=== PATIENT | male | born 1975 | race Caucasian/White ===

== ENCOUNTER 2016-07-02 18:27 | Emergency (ER) | payer SELFPAY ==
[~2016-07-02] VITALS: Ht 182.9 cm; Wt 100.0 kg
[~2016-07-02 18:27] MED LIST: CLIN150 PO; IBUP800T23 PO
[2016-07-02 18:29] VITALS: BP 172/102; PULSE 86; RESP 20; TEMP 97.7; O2SAT 98
[2016-07-02] MEDS ORDERED: AMOX500T PO (20:24)
[2016-07-02] MEDS ORDERED: DICL50TA3 PO (20:24)
--- NOTE | 2016-07-02 20:27 | PD ---
HPI Chief Complaint: Oral / Dental Pain or Problem Time Seen by Provider: 20:24 Travel History International Travel<30 days: No Contact w/Intl Traveler<30days: No Traveled to known affect area: No History of Present Illness HPI 40-year-old white male presents to the emergency department with complaints of dental pain and facial swelling. He states that his symptoms and been present now for the last week. He states that he had a leftover prescription from a friend that he started taking. He states that he had taken several days of amoxicillin which seemed to improve his symptoms. He states he is out of his antibiotics now and still has pain in his teeth. He denies any fever chills. No ear pain or sore throat. Pain is mild to moderate. No alleviating or palliative activity. No exacerbating activity. PFSH Past Medical History Medical History: Denies Significant Hx Diminished Hearing: No Tetanus Vaccination: Unknown Past Surgical History Appendectomy: Yes Social History Alcohol Use: No Tobacco Use: Yes (1 ppd) Substance Use: Yes (marijuana) Allergies-Medications (Allergen,Severity, Reaction): Coded Allergies: No Known Allergies (Unverified , 07/02/16) Reported Meds & Prescriptions Reported Meds & Active Scripts Active Review of Systems Except as stated in HPI: all other systems reviewed are Neg General / Constitutional: No: Fever, Chills Eyes: No: Blurred Vision, Photophobia HENT: Positive: Dental Difficulties, No: Headaches, Lightheadedness, Ear Discharge, Earache Cardiovascular: No: Palpitations, Irregular Rhythm Respiratory: No: Cough, Shortness of Breath Gastrointestinal: No: Nausea, Vomiting Genitourinary: No: Urgency, Frequency Physical Exam Narrative GENERAL: Well-developed, well-nourished in no acute distress. Nontoxic appearing. HEAD: Normocephalic, atraumatic. EYES: Pupils equal round and reactive. Extraocular motions intact. No scleral icterus. No injection or drainage. ENT: TMs clear without erythema. The external auditory canals clear. Nose: clear . Posterior pharynx is pink and moist. No tonsillar edema or exudate. Uvula midline. Airway patent. Patient has multiple dental caries. There is no facial cellulitis. Poor dentition NECK: Trachea midline.Supple, nontender, moves head freely. No central bony tenderness or spasm. CARDIOVASCULAR: Regular rate and rhythm without murmurs, gallops, or rubs. RESPIRATORY: Clear to auscultation. Breath sounds equal bilaterally. No wheezes , rales, or rhonchi. GASTROINTESTINAL: Abdomen soft, non-tender, nondistended. No hepato-splenomegaly , or palpable masses. No guarding. EXTREMITIES: No clubbing, cyanosis, or edema. No joint tenderness, effusion, or edema noted. BACK: Nontender without deformity or crepitance. No flank tenderness. Data Data Last Documented VS Vital Signs Date Time Temp Pulse Resp B/P Pulse Ox O2 Delivery O2 Flow Rate FiO2 07/02/16 18:29 97.7 86 20 172/102 98 Room Air MDM Medical Decision Making Medical Screen Exam Complete: Yes Emergency Medical Condition: Yes Medical Record Reviewed: Yes Differential Diagnosis MDM: Moderate Differential diagnoses: Dental abscess, dental caries, osteitis, cellulitis Narrative Course Patient's given prescriptions for amoxicillin diclofenac. He is made aware of his blood pressure. Diagnosis Primary Impression: Dental caries Additional Impressions: Dentalgia Hypertension Qualified Code: I10 - Essential hypertension Patient Instructions: General Instructions Additional Instructions: Rest. [place]water gargles. [place] oil on cotton balls. 3 Advil every 6 hours. Amoxicillin and Ultram. follow-up with a dentist as soon as possible. Follow-up with a primary care doctor for blood pressure management. And return to the ER if any problems. Med/Other Pt SpecificInfo: Prescription(s) given Scripts Diclofenac Sodium DR 50 Mg Tabdr50 Mg PO TID #21 TAB Prov:Tristen Buckner MD 07/02/16 Amoxicillin 500 Mg Tab1,000 Mg PO BID #40 TAB Prov:Tristen Buckner MD 07/02/16 Disposition: 01 DISCHARGE HOME Condition: Stable Cedrick Herrera Jul 02, 2016 20:27
== END 2016-07-02 20:30 | disposition home or self-care (01) ==
LOC: NEPB 18:27
DX: K02.9 Dental caries, unspecified (principal); I10 Essential (primary) hypertension; F17.200 Nicotine dependence, unspecified, uncomplicated
CPT/HCPCS: 99282

== ENCOUNTER 2016-11-19 04:17 | Emergency (ER) | payer SELFPAY ==
[~2016-11-19] VITALS: Ht 182.9 cm; Wt 100.0 kg
[~2016-11-19 04:17] MED LIST changes: +AMOX500T PO; -CLIN150 PO; +DICL50TA3 PO; -IBUP800T23 PO
[2016-11-19 04:22] VITALS: BP 144/84; PULSE 97; RESP 18; TEMP 98.1; O2SAT 95
[2016-11-19] MEDS ORDERED: DIPHTH/TETANUS/ACEL PERTUSSIS (BOOSTER) 0.5 ML VIAL/PFS IM ONE (05:00)
[2016-11-19] MEDS ORDERED: SODIUM CHLOR 0.9% 1000 ML INJ 1,000 ML IV ONE (05:00)
[2016-11-19] MEDS ORDERED: ceFAZolin 2 GM PREMIX 50 ML IV ONE (05:00)
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
[2016-11-19 05:20] VITALS: BP 134/71; PULSE 78; RESP 16; O2SAT 90; O2SAT 92
[2016-11-19 05:22] LABS: AUTOMATED NEUTROPHIL # 6.9 TH/MM3 (1.8-7.7); BASOPHIL # 0.1 TH/MM3 (0-0.2); BASOPHIL % 0.5 % (0.0-2.0); EOSINOPHIL # 0.2 TH/MM3 (0-0.4); HEMATOCRIT 43.7 % (39.0-51.0); HEMO FLAGS DIFF FINAL; LYMPH % 25.4 % (9.0-44.0); LYMPHOCYTE # 2.8 TH/MM3 (1.0-4.8); MEAN CELL VOLUME 88.2 FL (80.0-100.0); MEAN CORPUSCULAR HEMOGLOBIN 30.6 PG (27.0-34.0); MEAN CORPUSCULAR HGB CONC 34.7 % (32.0-36.0); MONO % 9.5 % (0.0-8.0); NEUT % 62.6 % (16.0-70.0); PLATELET COUNT 258 TH/MM3 (150-450); RED BLOOD COUNT 4.96 MIL/MM3 (4.50-5.90); RED CELL DISTRIBUTION WIDTH 12.8 % (11.6-17.2)
[2016-11-19 05:30] LABS: APTT (PATIENT) 26.1 SEC (24.3-30.1); INTERNATIONAL NORMALIZED RATIO 0.9 RATIO; PROTHROMBIN TIME - PATIENT 9.9 SEC (9.8-11.6)
[2016-11-19 05:38] LABS: ALT (GPT) 218 U/L (12-78); ANION GAP 10 MEQ/L (5-15); AST (GOT) 179 U/L (15-37); BICARBONATE 28.9 MEQ/L (21.0-32.0); BLOOD UREA NITROGEN 12 MG/DL (7-18); CHLORIDE 102 MEQ/L (98-107); GLOMERULAR FILTRATION RATE 89 ML/MIN (>89); POTASSIUM 3.3 MEQ/L (3.5-5.1); SODIUM (NA) 141 MEQ/L (136-145)
[2016-11-19 05:43] LABS: ALKALINE PHOSPHATASE 98 U/L (45-117); TOTAL BILIRUBIN ADULT 0.6 MG/DL (0.2-1.0)
--- NOTE | 2016-11-19 05:59 | PD ---
HPI Chief Complaint: Laceration/Skin Injury Time Seen by Provider: 04:39 Travel History International Travel<30 days: No Contact w/Intl Traveler<30days: No Traveled to known affect area: No History of Present Illness HPI The patient is a 41 year old male who presents to the [facility] emergency department with a history of reportedly falling sometime earlier this evening. The patient is currently intoxicated with alcohol. The patient also reports recently using cocaine. The patient is unsure how he fell. The patient is unsure whether he had any loss of consciousness. The patient was brought in by ambulance services with a pressure bandage in place. The patient was noted to have a reportedly 1 inch laceration to the medial forehead. The patient on arrival is sleepy and has difficulty staying awake to answer questions, therefore the patient's history is limited. The patient reports that his tetanus was last updated in 2010. FORMERLY [facility], [facility] Past Medical History Narrative Medical The patient's past medical history is significant for polysubstance abuse Diminished Hearing: No Tetanus Vaccination: < 5 Years Influenza Vaccination: No Past Surgical History Narrative Surgical The patient's past surgical history is significant for an appendectomy. Appendectomy: Yes Social History Alcohol Use: Yes Tobacco Use: Yes (1 ppd) Substance Use: Yes (marijuana, coccaine) Allergies-Medications (Allergen,Severity, Reaction): Coded Allergies: No Known Allergies (Unverified , 11/19/16) Reported Meds & Prescriptions Reported Meds & Active Scripts Active No Active Prescriptions or Reported Medications Review of Systems Except as stated in HPI: all other systems reviewed are Neg General / Constitutional: No: Fever Eyes: No: Visual changes HENT: No: Headaches, Neck Stiffness, Neck Pain Cardiovascular: No: Chest Pain or Discomfort Respiratory: No: Shortness of Breath Gastrointestinal: No: Abdominal Pain Genitourinary: No: Dysuria Musculoskeletal: No: Pain Skin: Positive Other (laceration of the forehead), No Rash Neurologic: Positive: Change in Mentation, Slurred Speech, No: Weakness, Focal Abnormalities, Sensory Disturbance Psychiatric: Positive: Substance Abuse, No: Depression Endocrine: No: Polydipsia Hematologic/Lymphatic: No: Easy Bruising Physical Exam Narrative General: The patient is a well-developed well-nourished male, drowsy on examination, having difficulty staying awake to provide history. The patient is brought in by ambulance services, no C-spine immobilization or backboard was placed prior to arrival per Head and Neck exam: Head is normocephalic, with pressure bandage in place over the top of his head. This was removed and the patient was noted to have a superficial laceration that is approximately 2-1/2 cm to the left side of his forehead. Bleeding has been controlled. There is no step-off or crepitus overlying this area. No facial bone tenderness or increased facial bone mobility noted on palpation. Eyes: EOMI, pupils are equal round and reactive to light. Nose: Midline septum with pink mucous membranes Mouth: Dentition unremarkable. Moist mucus membranes. Posterior oropharynx is not erythematous. No tonsillar hypertrophy. Uvula midline. Airway patent. Neck: The patient has no spinous process tenderness to palpation. No step-off or crepitus. No erythema or ecchymosis. No tracheal deviation. The trachea appears midline. Cardiovascular: Regular rate and rhythm without murmurs, gallops, or rubs. Lungs: Clear to auscultation bilaterally. No wheezes, rhonchi, or rales. No chest wall tenderness to palpation. No erythema or ecchymosis noted. No crepitus , step off, or flail segment noted. Abdomen: Soft, without tenderness to palpation in all 4 quadrants of the abdomen. No guarding, rebound, or rigidity. No erythema or ecchymosis noted. Extremities: No instability or pain noted on pelvic rock. No clubbing, cyanosis , or edema. 2+ pulses in all 4 extremities. No extremity tenderness or deformity noted on palpation or passive/ active range of motion. Back: No spinous process tenderness to palpation. No stepoff or crepitus noted. No costovertebral angle tenderness to palpation. No erythema or ecchymosis. Neurologic Exam: The patient is uncooperative with formal neurologic testing, however when he is awakened he has no evidence of facial asymmetry and moves all extremities equally with 5 over 5 strength. Skin Exam: No rash noted. Data Data Last Documented VS Vital Signs Date Time Temp Pulse Resp B/P Pulse Ox O2 Delivery O2 Flow Rate FiO2 11/19/16 05:20 90 Room Air 11/19/16 05:20 78 16 134/71 2 11/19/16 04:[address] Brain W/O Iv Contrast(Rout) (11/19/16 04:39) Ct Cerv Spine W/O Contrast (11/19/16 04:39) Complete Blood Count With Diff (11/19/16 04:51) Comprehensive Metabolic Panel (11/19/16 04:51) Prothrombin Time / Inr (Pt) (11/19/16 04:51) Act Partial Throm Time (Ptt) (11/19/16 04:51) Urinalysis - C+S If Indicated (11/19/16 04:51) Chest, Single Ap (11/19/16 04:51) Iv Access Insert/Monitor (11/19/16 04:51) Ecg Monitoring (11/19/16 04:51) Oximetry (11/19/16 04:51) Drug Screen, Random Urine (11/19/16 04:51) Alcohol (Ethanol) (11/19/16 04:51) Sodium Chlor 0.9% 1000 Ml Inj (Ns 1000 M (11/19/16 05:00) Gbmv-Fzw-Kiyphk (Booster) Inj (Boostrix (11/19/16 05:00) Cefazolin 2 Gm Premix (Ancef 2 Gm Premix (11/19/16 05:00) Labs Laboratory Tests Test 11/19/16 05:15 White Blood Count 11.0 TH/MM3 Red Blood Count 4.96 MIL/MM3 Hemoglobin 15.2 GM/DL Hematocrit 43.7 % Mean Corpuscular Volume 88.2 FL Mean Corpuscular Hemoglobin 30.6 PG Mean Corpuscular Hemoglobin 34.7 % Concent Red Cell Distribution Width 12.8 % Platelet Count 258 TH/MM3 Mean Platelet Volume 8.0 FL Neutrophils (%) (Auto) 62.6 % Lymphocytes (%) (Auto) 25.4 % Monocytes (%) (Auto) 9.5 % Eosinophils (%) (Auto) 2.0 % Basophils (%) (Auto) 0.5 % Neutrophils # (Auto) 6.9 TH/MM3 Lymphocytes # (Auto) 2.8 TH/MM3 Monocytes # (Auto) 1.1 TH/MM3 Eosinophils # (Auto) 0.2 TH/MM3 Basophils # (Auto) 0.1 TH/MM3 CBC Comment DIFF FINAL Differential Comment Prothrombin Time 9.9 SEC Prothromb Time International 0.9 RATIO Ratio Activated Partial 26.1 SEC Thromboplast Time Sodium Level 141 MEQ/L Potassium Level 3.3 MEQ/L Chloride Level 102 MEQ/L Carbon Dioxide Level 28.9 MEQ/L Anion Gap 10 MEQ/L Blood Urea Nitrogen 12 MG/DL Creatinine 0.94 MG/DL Estimat Glomerular Filtration 89 ML/MIN Rate Random Glucose 133 MG/DL Calcium Level 8.1 MG/DL Total Bilirubin 0.6 MG/DL Aspartate Amino Transf 179 U/L (AST/SGOT) Alanine Aminotransferase 218 U/L (ALT/SGPT) Alkaline Phosphatase 98 U/L Total Protein 7.4 GM/DL Albumin 3.9 GM/DL Ethyl Alcohol Level 300 MG/DL [facility] Medical Decision Making Medical Screen Exam Complete: Yes Emergency Medical Condition: Yes Medical Record Reviewed: Yes Differential Diagnosis Intracranial hemorrhage, versus cervical spine injury, versus concussion, versus alcohol intoxication, versus other substance intoxication. Narrative Course During the course of the patients emergency department visit, the patients history, examination, and differential diagnosis were reviewed with the patient. The patient had IV access obtained and blood work sent for analysis. The patient was placed on a gas utility worker with oximetry and blood pressure monitoring. A CT scan of the head and neck was ordered, chest x-ray was ordered. Dermabond was placed at the bedside for the repair of the patient's wound by me. The patient's wound was cleaned prior to the Dermabond being applied. The patient was initially provided an update of his tetanus, Ancef 2 g IV. The patient was given normal saline 1 L IV fluid bolus. The patients laboratory studies were reviewed and remarkable for a white count of 11, hemoglobin 15.2, platelets 258 with 9.5 monocytes, CMP is remarkable for potassium of 3.3 which will be supplemented, glucose 133, calcium 8.1, AST 179, ALT 218, PT PTT within normal limits, alcohol level is 300. Radiology studies were reviewed and remarkable for a chest x-ray that shows no acute abnormality. CT scan of the brain shows no acute abnormality. CT scan of the C-spine shows no evidence of an acute fracture, chronic degenerative disease at C5-C6 is noted. The patient will be observed in the emergency department fully has improvement in his mentation and is able to walk without assistance. Procedures Procedure Narrative Laceration repair: The patient has a superficial laceration that is approximately 2-1/2 cm along the left side of the forehead. Bleeding is controlled. The patient's wound was cleaned and Dermabond was applied by me. The patient tolerated the procedure well. Diagnosis Primary Impression: Head injury Qualified Code: S09.90XA - Head injury, initial encounter Additional Impression: Alcohol intoxication Qualified Code: F10.929 - Alcohol intoxication, with unspecified complication Scripts No Active Prescriptions or Reported Meds Matilda Ferguson MD Nov 19, 2016 05:59
[2016-11-19 09:20] VITALS: BP 130/58; PULSE 74; RESP 16; O2SAT 94
== END 2016-11-19 13:21 | disposition home or self-care (01) ==
LOC: NEPE 04:17
DX: S01.81XA Laceration without foreign body of other part of head, initial encounter (principal); S09.90XA Unspecified injury of head, initial encounter; F10.129 Alcohol abuse with intoxication, unspecified; F17.200 Nicotine dependence, unspecified, uncomplicated; Z23 Encounter for immunization; W19.XXXA Unspecified fall, initial encounter
CPT/HCPCS: 12011; 70450; 71010; 72125; 80053; 80307; 85025; 85610; 85730; 90471; 90715; 96365; 99285; J0690; J7030

== ENCOUNTER 2016-12-02 17:23 | Inpatient (IN) | payer OTHER ==
[~2016-12-02] VITALS: Ht 182.9 cm; Wt 97.0 kg
[2016-12-02 17:24] VITALS: BP 125/52; PULSE 84; RESP 22; TEMP 97.7
[2016-12-02] MEDS ORDERED: SODIUM CHLORIDE 0.9% FLUSH 10 ML FLUSH IVF PRN (17:45)
[2016-12-02] MEDS ORDERED: MORPHINE SULFATE 4 MG/ML INJ IV PUSH ONE ×2 (17:45→19:00)
[2016-12-02] MEDS ORDERED: ONDANSETRON HCL 4 MG/2 ML VIAL IVP ONE (17:45)
[2016-12-02] MEDS ORDERED: SODIUM CHLOR 0.9% 1000 ML INJ 1,000 ML IV ONE (17:45)
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
[2016-12-02] MEDS ORDERED: TETANUS/DIPHTHERIA TOXOID ADULT 0.5 ML VIAL IM ONE (18:00)
[2016-12-02 18:01] LABS: BASOPHIL # 0.1 TH/MM3 (0-0.2); BASOPHIL % 0.5 % (0.0-2.0); EOSINOPHIL # 0.2 TH/MM3 (0-0.4); EOSINOPHIL % 1.5 % (0.0-4.0); HEMATOCRIT 45.8 % (39.0-51.0); HEMO FLAGS DIFF FINAL; LYMPH % 14.8 % (9.0-44.0); LYMPHOCYTE # 2.4 TH/MM3 (1.0-4.8); MEAN CELL VOLUME 89.6 FL (80.0-100.0); MEAN CORPUSCULAR HEMOGLOBIN 31.3 PG (27.0-34.0); MEAN CORPUSCULAR HGB CONC 34.9 % (32.0-36.0); MONO % 8.8 % (0.0-8.0); NEUT % 74.4 % (16.0-70.0); PLATELET COUNT 265 TH/MM3 (150-450); RED BLOOD COUNT 5.12 MIL/MM3 (4.50-5.90); RED CELL DISTRIBUTION WIDTH 13.1 % (11.6-17.2); WHITE BLOOD COUNT 16.2 TH/MM3 (4.0-11.0)
[2016-12-02 18:15] LABS: APTT (PATIENT) 23.4 SEC (24.3-30.1); PROTHROMBIN TIME - PATIENT 11.1 SEC (9.8-11.6)
[2016-12-02] MEDS ORDERED: IOHEXOL 350 MG/ML 10 ML VIAL (for RAD DIAG) IV ONE (18:20)
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
[2016-12-02 18:25] LABS: ANION GAP 14 MEQ/L (5-15); BICARBONATE 23.2 MEQ/L (21.0-32.0); BLOOD UREA NITROGEN 23 MG/DL (7-18); CHLORIDE 101 MEQ/L (98-107); GLOMERULAR FILTRATION RATE 71 ML/MIN (>89); POTASSIUM 3.8 MEQ/L (3.5-5.1); SODIUM (NA) 138 MEQ/L (136-145)
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
[2016-12-02 18:48] VITALS: BP 127/78; PULSE 70; RESP 16; O2SAT 98
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
[2016-12-02] MEDS ORDERED: ONDANSETRON HCL 4 MG/2 ML VIAL IV ONE (19:00)
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
[2016-12-02] MEDS ORDERED: PROPOFOL 500 MG/50 ML BTL IV ONE (20:30)
[2016-12-02 20:43] VITALS: BP 135/83; PULSE 85; RESP 16; O2SAT 96
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
[2016-12-02 20:55] VITALS: O2SAT 100
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
--- NOTE | 2016-12-02 21:32 | EKG ---
Date Performed: 12/02/2016 Time Performed: 17:46:39 PTAGE: 41 years EKG: Sinus rhythm NORMAL ECG NO PREVIOUS TRACING DOCTOR: Eugene Hidalgo Interpretating Date/Time 12/02/2016 21:30:02
[2016-12-02 22:22] VITALS: BP 141/86; PULSE 80; RESP 18; O2SAT 100
[2016-12-02] MEDS ORDERED: POVIDONE IODINE 5% (ANTISEPSIS KIT) 4 APPLICATIONS EACH NARE PRN (22:30)
[2016-12-02] MEDS ORDERED: METOPROLOL TARTRATE 25 MG TAB PO PRN (22:30)
[2016-12-02] MEDS ORDERED: SODIUM CHLORID 0.9% 500 ML IV PRN (22:30)
[2016-12-02] MEDS ORDERED: LACTATED RINGER'S 1000 ML IV PRN (22:30)
[2016-12-02] MEDS ORDERED: INSULIN HUMAN REGULAR 1,000 UNITS/10 ML VIAL SQ PRN (22:30)
[2016-12-02] MEDS ORDERED: CHLORHEXIDINE GLUCONATE 2 % 1 PACK (2 CLOTHS) TOPICAL PRN (22:30)
[2016-12-02 22:58] VITALS: BP 152/94; PULSE 84; RESP 18; TEMP 97.7; O2SAT 100
[2016-12-02] MEDS ORDERED: ONDANSETRON HCL 4 MG/2 ML VIAL IV PUSH PRN (23:15)
[2016-12-02] MEDS: MORPHINE SULFATE 4 MG/ML INJ IV PRN (23:25)
[2016-12-03] MEDS: ACETAMINOPHEN/HYDROcodone 325 MG/10 MG TAB PO PRN ×5 (00:11→17:46)
[2016-12-03] MEDS: MORPHINE SULFATE 4 MG/ML INJ IV PRN ×6 (02:23→23:50)
[2016-12-03 04:35] VITALS: BP 121/72; PULSE 78; RESP 17; TEMP 96.7; O2SAT 100
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
[2016-12-03] MEDS ORDERED: WHEEMIS3 (07:09)
[2016-12-03] MEDS ORDERED: HYDR-3583 PO (07:09)
[2016-12-03] MEDS ORDERED: WALKER/ADULT/FO1 MIS (07:09)
[2016-12-03] MEDS ORDERED: XARE10TA PO (07:09)
[2016-12-03] MEDS ORDERED: ENOXAPARIN SODIUM 30 MG/0.3 ML SYRINGE SQ ONE (07:15)
[2016-12-03] MEDS ORDERED: SODIUM CHLORIDE 0.9% FLUSH 10 ML FLUSH IV FLUSH PRN (07:45)
[2016-12-03] MEDS ORDERED: ONDANSETRON HCL 4 MG/2 ML VIAL IV PRN (07:45)
[2016-12-03 08:00] VITALS: BP 107/75; PULSE 86; RESP 17; TEMP 96.4; O2SAT 99
[2016-12-03] MEDS ORDERED: ENALAPRILAT 1.25 MG/ML VIAL IV PRN (08:00)
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
[2016-12-03] MEDS: DOCUSATE SODIUM 100 MG CAP PO SCH ×2 (08:48→20:09)
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
[2016-12-03 10:55] VITALS: BP 127/79; PULSE 85; RESP 18; TEMP 95.3; O2SAT 96
[2016-12-03] MEDS: GABAPENTIN 300 MG CAP PO SCH ×2 (13:17→15:49)
[2016-12-03] MEDS ORDERED: MAGN400S PO (13:51)
[2016-12-03] MEDS ORDERED: DOCU1CAP39 PO (13:51)
[2016-12-03 15:46] VITALS: BP 124/73; PULSE 89; RESP 18; TEMP 97.1; O2SAT 98
[2016-12-03 17:16] VITALS: O2SAT 98
[2016-12-03] MEDS: FAMOTIDINE 20 MG TAB PO SCH (20:09)
[2016-12-03] MEDS: MAGNESIUM HYDROXIDE SUSP 30 ML CUP PO SCH (20:15)
[2016-12-03 20:50] VITALS: BP 124/81; PULSE 86; RESP 17; TEMP 98.1; O2SAT 95
[2016-12-04] VITALS: BP 132/79; PULSE 82; RESP 16; TEMP 98.5; O2SAT 97
[2016-12-04] MEDS: MORPHINE SULFATE 4 MG/ML INJ IV PRN ×2 (03:57→07:00)
[2016-12-04 04:00] VITALS: BP 137/69; PULSE 85; RESP 20; TEMP 98.1; O2SAT 95
--- NOTE | 2016-12-04 06:56 | PD.ORT.PN ---
Subjective Subjective Remarks Resting comfortably with no new complaints Objective Vitals Vital Signs Date Time Temp Pulse Resp B/P Pulse Ox O2 Delivery O2 Flow Rate FiO2 12/04/16 04:00 98.1 85 20 137/69 95 12/04/16 00:00 98.5 82 16 132/79 97 12/03/16 20:50 98.1 86 17 124/81 95 12/03/16 17:16 98 Nasal Cannula 1.00 12/03/16 15:46 97.1 89 18 124/73 98 12/03/16 10:55 95.3 85 18 127/79 96 12/03/16 08:00 96.4 86 17 107/75 99 I/O 12/03/16 12/03/16 12/03/16 12/04/16 12/04/16 12/04/16 07:00 15:00 23:00 07:00 15:00 23:00 Intake Total 1690 ml 480 ml 61 ml Output Total 1000 ml 500 ml 975 ml Balance 690 ml -20 ml -914 ml Intake Oral 1690 ml 480 ml 0 ml IV Total 61 ml Output Urine Total 1000 ml 500 ml 975 ml Stool Total 0 ml # Bowel Movements 0 0 Result Diagram: 12/02/16 1745 12/02/16 1745 Imaging Last 24 hours Impressions Pelvis X-Ray 12/02/161736 Signed Impressions: Service Date/Time: Friday, December 02, 2016 17:53 - CONCLUSION: 1. Fracture of the right acetabulum with fracture fragments noted. 2. Femoral head is dislocated superiorly. Gordo Khalil MD Maxillofacial CT 12/02/161736 Signed Impressions: Service Date/Time: Friday, December 02, 2016 18:11 - CONCLUSION: 1. Facial soft tissue swelling without acute fracture. 2. Old left nasal fracture. Gordo Khalil MD Head CT 12/02/161736 Signed Impressions: Service Date/Time: Friday, December 02, 2016 18:11 - CONCLUSION: 1. No acute intracranial abnormality. Gordo Khalil MD Chest X-Ray 12/02/161736 Signed Impressions: Service Date/Time: Friday, December 02, 2016 17:55 - CONCLUSION: No acute disease. Gordo Khalil MD Abdomen/Pelvis CT 12/02/161736 Signed Impressions: Service Date/Time: Friday, December 02, 2016 18:20 - CONCLUSION: 1. Comminuted displaced fracture of the posterior acetabulum. 2. Dislocation of the femoral head superiorly and posteriorly. 3. No abdominal visceral injury. Gordo Khalil MD Objective Remarks RLE: +CKS. decreased sensation distally. +foot drop. Good distal pulses. Is able to move toes LLE: full motion. no pain. nvi BUE: full motion. no pain. nvi Assessment & Plan Assessment and Plan 1) Right Acetabulum fx/dislocation -bedrest -NWB -maintain knee brace -npo -consents -plan for surgery today 2) Right Foot Drop -monitor. -will require PODUS boot Cirilo Harp Jr. Dec 04, 2016 06:56
[2016-12-04] MEDS ORDERED: TRANEXAMIC ACID IV ONE (07:00)
[2016-12-04] MEDS ORDERED: SODIUM CHLORIDE 0.9% IV ONE (07:00)
[2016-12-04] MEDS: GABAPENTIN 300 MG CAP PO SCH ×4 (07:06→17:20)
[2016-12-04] MEDS: DOCUSATE SODIUM 100 MG CAP PO SCH ×2 (07:06→20:40)
[2016-12-04 07:15] LABS: BASOPHIL % 0.5 % (0.0-2.0); EOSINOPHIL # 0.3 TH/MM3 (0-0.4); EOSINOPHIL % 2.9 % (0.0-4.0); HEMATOCRIT 37.3 % (39.0-51.0); HEMO FLAGS DIFF FINAL; LYMPH % 16.3 % (9.0-44.0); LYMPHOCYTE # 1.4 TH/MM3 (1.0-4.8); MEAN CELL VOLUME 89.3 FL (80.0-100.0); MEAN CORPUSCULAR HEMOGLOBIN 32.1 PG (27.0-34.0); MEAN CORPUSCULAR HGB CONC 35.9 % (32.0-36.0); MONO % 13.2 % (0.0-8.0); NEUT % 67.1 % (16.0-70.0); PLATELET COUNT 200 TH/MM3 (150-450); RED BLOOD COUNT 4.18 MIL/MM3 (4.50-5.90); WHITE BLOOD COUNT 8.9 TH/MM3 (4.0-11.0)
[2016-12-04 07:49] LABS: BICARBONATE 30.7 MEQ/L (21.0-32.0); POTASSIUM 3.4 MEQ/L (3.5-5.1)
[2016-12-04] MEDS ORDERED: ceFAZolin 2 GM PREMIX 50 ML ONE (07:57)
[2016-12-04] MEDS ORDERED: VANCOMYCIN HCL 1000 MG VIAL ONE (07:57)
[2016-12-04] MEDS ORDERED: SODIUM CHLOR 0.9% 250 ML INJ 250 ML ONE (07:58)
[2016-12-04] MEDS ORDERED: GENTAMICIN SULFATE 80 MG/2 ML VIAL ONE (07:58)
[2016-12-04] MEDS ORDERED: FAMOTIDINE 20 MG/2 ML VIAL ONE (08:45)
[2016-12-04] MEDS ORDERED: MIDAZOLAM HCL 2 MG/2 ML VIAL ONE ×2 (08:45→12:29)
[2016-12-04] MEDS ORDERED: ACETAMINOPHEN 1000 MG/100 ML VIAL IV ONE (08:55)
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
[2016-12-04] MEDS ORDERED: MISCELLANEOUS NURSING INFORMATION XX PRN (11:45)
[2016-12-04] MEDS ORDERED: NALOXONE HCL 0.4 MG/ML AMP IV PRN (11:45)
[2016-12-04] MEDS ORDERED: ACETAMINOPHEN/HYDROcodone 325 MG/10 MG TAB PO PRN (11:45)
[2016-12-04] MEDS: LACTATED RINGER'S 1000 ML INJ 1,000 ML IV SCH ×2 (11:45→12:45)
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
[2016-12-04] MEDS: POTASSIUM CHLORIDE 20 MEQ CONTROLLED RELEASE TAB PO ONE ×2 (12:00→13:38)
[2016-12-04] MEDS ORDERED: fentaNYL CITRATE 250 MCG/5 ML AMP ONE (12:30)
[2016-12-04] MEDS ORDERED: DO NOT ADM ANY ANTICOAGULANT DRUGS PRN (12:45)
[2016-12-04] MEDS ORDERED: MISCELLANEOUS PHARMACY INFORMATION XX ONE (13:00)
[2016-12-04] MEDS: ACETAMINOPHEN/HYDROcodone 325 MG/10 MG TAB PO PRN ×2 (13:38→17:20)
[2016-12-04 13:42] VITALS: BP 152/86; PULSE 78; RESP 18; TEMP 98.9; O2SAT 94
[2016-12-04] MEDS: PCA - TOTAL MG MORPHINE DELIVERED PER SHIFT SCH ×2 (13:44→22:00)
--- NOTE | 2016-12-04 14:32 | RADRPT ---
EXAM DATE/TIME: 12/04/2016 11:31 [place] COMPARISON: No previous studies available for comparison. INDICATIONS : ORIF right acetabulum. MEDICAL HISTORY : None. SURGICAL HISTORY : None. ENCOUNTER: Subsequent ACUITY: 3 days PAIN SCORE: Non-responsive. LOCATION: Right acetabulum. FINDINGS: The patient is status post ORIF of right acetabular fracture. Hardware appears to be in good position . CONCLUSION: Status post ORIF of right acetabular fracture with hardware in good position. Tristen Ho MD on December 04, 2016 at 14:29 Board Certified Radiologist. This report was verified electronically.
[2016-12-04] MEDS: MORPHINE SULFATE 30 MG/30 ML PCA IV SCH ×2 (14:53→19:18)
[2016-12-04 16:00] VITALS: BP 142/84; PULSE 77; RESP 18; TEMP 98.2; O2SAT 93
[2016-12-04] MEDS: ceFAZolin 2 GM PREMIX 50 ML IV SCH (16:13)
[2016-12-04] MEDS: FAMOTIDINE 20 MG TAB PO SCH (20:40)
[2016-12-04] MEDS: MAGNESIUM HYDROXIDE SUSP 30 ML CUP PO SCH (20:40)
[2016-12-04] MEDS: VANCOMYCIN INJ 1,000 MG in SODIUM CHLOR 0.9% 250 ML INJ 250 ML IV SCH (20:43)
[2016-12-04 21:00] VITALS: BP 119/73; PULSE 87; RESP 17; TEMP 99; O2SAT 93
[2016-12-04 23:30] VITALS: BP 122/82; PULSE 93; RESP 17; TEMP 99.4; O2SAT 93
[2016-12-05] MEDS: ceFAZolin 2 GM PREMIX 50 ML IV SCH ×3 (00:23→19:08)
[2016-12-05] MEDS: ENOXAPARIN SODIUM 30 MG/0.3 ML SYRINGE SQ SCH ×2 (00:25→12:05)
[2016-12-05 03:55] VITALS: BP 133/69; PULSE 93; RESP 17; TEMP 99.8; O2SAT 92
[2016-12-05] MEDS: MORPHINE SULFATE 30 MG/30 ML PCA IV SCH ×2 (05:52→12:31)
[2016-12-05] MEDS: PCA - TOTAL MG MORPHINE DELIVERED PER SHIFT SCH ×3 (06:00→22:00)
--- NOTE | 2016-12-05 06:52 | PD.ORT.PN ---
Subjective Subjective Remarks Resting comfortably with no new complaints Objective Vitals Vital Signs Date Time Temp Pulse Resp B/P Pulse Ox O2 Delivery O2 Flow Rate FiO2 12/05/16 03:55 99.8 93 17 133/69 92 12/04/16 23:30 99.4 93 17 122/82 93 12/04/16 21:00 99.0 87 17 119/73 93 12/04/16 16:00 98.2 77 18 142/84 93 12/04/16 14:53 14 12/04/16 13:42 98.9 78 18 152/86 94 12/04/16 13:25 72 16 167/89 96 Nasal Cannula 2 12/04/16 13:00 81 16 160/85 95 Nasal Cannula 2 12/04/16 12:45 78 16 161/90 93 Nasal Cannula 2 12/04/16 12:25 98.2 92 16 174/87 95 Nasal Cannula 2 I/O 12/04/16 12/04/16 12/04/16 12/05/16 12/05/16 12/05/16 07:00 15:00 23:00 07:00 15:00 23:00 Intake Total 61 ml 2000 ml 1144 ml 1036 ml Output Total 975 ml 850 ml 215 ml 10 ml Balance -914 ml 1150 ml 929 ml 1026 ml Intake Oral 0 ml 360 ml IV Total 61 ml 200 ml 784 ml 1036 ml Other 1800 ml Output Urine Total 975 ml 550 ml 200 ml Drainage Total 50 ml 15 ml 10 ml Estimated Blood Loss 250 ml # Bowel Movements 0 Result Diagram: 12/04/16 0611 12/04/16 0611 Imaging Last 24 hours Impressions Pelvis X-Ray 12/02/161736 Signed Impressions: Service Date/Time: Friday, December 02, 2016 17:53 - CONCLUSION: 1. Fracture of the right acetabulum with fracture fragments noted. 2. Femoral head is dislocated superiorly. Gordo Khalil MD Maxillofacial CT 12/02/161736 Signed Impressions: Service Date/Time: Friday, December 02, 2016 18:11 - CONCLUSION: 1. Facial soft tissue swelling without acute fracture. 2. Old left nasal fracture. Gordo Khalil MD Head CT 12/02/161736 Signed Impressions: Service Date/Time: Friday, December 02, 2016 18:11 - CONCLUSION: 1. No acute intracranial abnormality. Gordo Khalil MD Chest X-Ray 12/02/161736 Signed Impressions: Service Date/Time: Friday, December 02, 2016 17:55 - CONCLUSION: No acute disease. Gordo Khalil MD Abdomen/Pelvis CT 12/02/161736 Signed Impressions: Service Date/Time: Friday, December 02, 2016 18:20 - CONCLUSION: 1. Comminuted displaced fracture of the posterior acetabulum. 2. Dislocation of the femoral head superiorly and posteriorly. 3. No abdominal visceral injury. Gordo Khalil MD Objective Remarks RLE: Dry dressings intact +CKS. decreased sensation distally. +foot drop. Good distal pulses. Is able to move toes LLE: full motion. no pain. nvi BUE: full motion. no pain. nvi Assessment & Plan Assessment and Plan 1) Right Acetabulum fx/dislocation ORIF POD 1 Toe-touch weightbearing with posterior hip precautions Radiation treatment today Daily dressing changes beginning POD 2 with removal of drain 2) Right Foot Drop -monitor. -will require PODUS boot Lovenox Incentive spirometry Case management for discharge planning to home with home health care on Saturday Follow-up with Dr. Arriaga or PA in 2 weeks Cirilo Harp Jr. Dec 05, 2016 06:52
[2016-12-05 07:00] LABS: HEMATOCRIT 30.7 % (39.0-51.0); MEAN CELL VOLUME 88.8 FL (80.0-100.0); MEAN CORPUSCULAR HEMOGLOBIN 31.8 PG (27.0-34.0); MEAN CORPUSCULAR HGB CONC 35.8 % (32.0-36.0); PLATELET COUNT 163 TH/MM3 (150-450); RED BLOOD COUNT 3.46 MIL/MM3 (4.50-5.90); RED CELL DISTRIBUTION WIDTH 12.9 % (11.6-17.2); REVIEW FLAG FINAL; WHITE BLOOD COUNT 8.7 TH/MM3 (4.0-11.0)
[2016-12-05 08:00] VITALS: BP 141/73; PULSE 86; RESP 18; TEMP 99.6; O2SAT 97
[2016-12-05] MEDS: VANCOMYCIN INJ 1,000 MG in SODIUM CHLOR 0.9% 250 ML INJ 250 ML IV SCH ×2 (08:39→20:54)
[2016-12-05] MEDS: INDOMETHACIN 75 MG CONTROLLED RELEASE CAP PO SCH (08:40)
[2016-12-05] MEDS: GABAPENTIN 300 MG CAP PO SCH ×2 (08:40→12:07)
[2016-12-05] MEDS: DOCUSATE SODIUM 100 MG CAP PO SCH ×2 (08:40→20:54)
[2016-12-05] MEDS: LACTATED RINGER'S 1000 ML INJ 1,000 ML IV SCH (09:47)
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
[2016-12-05 12:00] VITALS: BP 141/76; PULSE 87; RESP 19; TEMP 97.4; O2SAT 94
[2016-12-05] MEDS ORDERED: BISACODYL EC 5 MG TABEC PO ONE (12:45)
[2016-12-05] MEDS ORDERED: BISACODYL 10 MG SUPP RECTAL ONE (12:45)
[2016-12-05] MEDS: GABAPENTIN 400 MG CAP PO SCH ×2 (12:57→19:07)
[2016-12-05 16:00] VITALS: BP 130/70; PULSE 92; RESP 18; TEMP 99.7; O2SAT 93
[2016-12-05 20:05] VITALS: BP 148/81; PULSE 88; RESP 19; TEMP 100.2; O2SAT 96
[2016-12-05] MEDS: MAGNESIUM HYDROXIDE SUSP 30 ML CUP PO SCH (20:54)
[2016-12-05] MEDS: FAMOTIDINE 20 MG TAB PO SCH (20:54)
[2016-12-05] MEDS: ACETAMINOPHEN/HYDROcodone 325 MG/10 MG TAB PO PRN (20:55)
[2016-12-06] MEDS: ceFAZolin 2 GM PREMIX 50 ML IV SCH ×3 (00:02→16:17)
[2016-12-06] MEDS: ENOXAPARIN SODIUM 30 MG/0.3 ML SYRINGE SQ SCH ×3 (00:02→23:00)
[2016-12-06 00:43] VITALS: BP 140/78; PULSE 84; RESP 18; TEMP 99.4; O2SAT 97
[2016-12-06] MEDS: MORPHINE SULFATE 30 MG/30 ML PCA IV SCH (01:55)
[2016-12-06 04:41] VITALS: BP 125/72; PULSE 75; RESP 18; TEMP 97.5; O2SAT 96
[2016-12-06] MEDS: PCA - TOTAL MG MORPHINE DELIVERED PER SHIFT SCH ×2 (05:55→10:48)
--- NOTE | 2016-12-06 06:42 | HHI.FF ---
Face to Face Verification Diagnosis: (1) Right acetabular fracture Physical Therapy Gait training Hip: Hip fracture, Protocol: Right Right LE Weight Bearing: Toe Touch WB, No Quad Sets Right LE Range of Motion: Passive ROM (right ankle) Nursing Dressing Changes: Xeroform (begin Xeroform POD 10 daily), Coverderm/Primapore I have seen patient Rodney Deleon on 12/06/16. My clinical findings support the need for the requested home health care services because: Limited ability to care for self I certify that my clinical findings support that this patient is homebound because: Post-op weakness Cirilo Harp Jr. Dec 06, 2016 06:42
[2016-12-06] MEDS ORDERED: COMMODE 3-IN-11 MIS (06:43)
--- NOTE | 2016-12-06 06:47 | PD.ORT.PN ---
Subjective Subjective Remarks Resting comfortably with no new complaints Objective Vitals Vital Signs Date Time Temp Pulse Resp B/P Pulse Ox O2 Delivery O2 Flow Rate FiO2 12/06/16 04:41 97.5 75 18 125/72 96 12/06/16 00:43 99.4 84 18 140/78 97 12/05/16 20:05 100.2 88 19 148/81 96 12/05/16 16:00 99.7 92 18 130/70 93 12/05/16 14:30 16 12/05/16 12:31 16 12/05/16 12:00 97.4 87 19 141/76 94 12/05/16 08:00 99.6 86 18 141/73 97 I/O 12/05/16 12/05/16 12/05/16 12/06/16 12/06/16 12/06/16 06:59 14:59 22:59 06:59 14:59 22:59 Intake Total 1036 ml 1150 ml 1875 ml 1000 ml Output Total 10 ml 295 ml 960 ml 10 ml Balance 1026 ml 855 ml 915 ml 990 ml Intake Oral 220 ml 1300 ml IV Total 1036 ml 930 ml 575 ml 1000 ml Output Urine Total 275 ml 950 ml Drainage Total 10 ml 20 ml 10 ml 10 ml # Bowel Movements 0 0 Result Diagram: 12/05/16 0559 12/04/16 0611 Imaging Last 24 hours Impressions Pelvis X-Ray 12/02/161736 Signed Impressions: Service Date/Time: Friday, December 02, 2016 17:53 - CONCLUSION: 1. Fracture of the right acetabulum with fracture fragments noted. 2. Femoral head is dislocated superiorly. Gordo Khalil MD Maxillofacial CT 12/02/161736 Signed Impressions: Service Date/Time: Friday, December 02, 2016 18:11 - CONCLUSION: 1. Facial soft tissue swelling without acute fracture. 2. Old left nasal fracture. Gordo Khalil MD Head CT 12/02/161736 Signed Impressions: Service Date/Time: Friday, December 02, 2016 18:11 - CONCLUSION: 1. No acute intracranial abnormality. Gordo Khalil MD Chest X-Ray 12/02/161736 Signed Impressions: Service Date/Time: Friday, December 02, 2016 17:55 - CONCLUSION: No acute disease. Gordo Khalil MD Abdomen/Pelvis CT 12/02/16 2893 Signed Impressions: Service Date/Time: Friday, December 02, 2016 18:20 - CONCLUSION: 1. Comminuted displaced fracture of the posterior acetabulum. 2. Dislocation of the femoral head superiorly and posteriorly. 3. No abdominal visceral injury. Gordo Khalil MD Objective Remarks RLE: Dry dressings intact +CKS. decreased sensation distally. +foot drop. Good distal pulses. Is able to move toes LLE: full motion. no pain. nvi BUE: full motion. no pain. nvi Assessment & Plan Assessment and Plan 1) Right Acetabulum fx/dislocation ORIF POD 2 Toe-touch weightbearing with posterior hip precautions Daily dressing changes with Prim[place] 2) Right Foot Drop -monitor. -will require PODUS boot Lovenox Incentive spirometry Case management for discharge planning to home with home health care on Saturday Follow-up with Dr. Arriaga or PA in 2 weeks Cirilo Harp Jr. Dec 06, 2016 06:47
[2016-12-06 08:00] VITALS: BP 118/65; PULSE 67; RESP 16; TEMP 97.2; O2SAT 96
[2016-12-06] MEDS: INDOMETHACIN 75 MG CONTROLLED RELEASE CAP PO SCH (08:16)
[2016-12-06] MEDS: DOCUSATE SODIUM 100 MG CAP PO SCH ×2 (08:16→20:20)
[2016-12-06] MEDS: GABAPENTIN 400 MG CAP PO SCH ×3 (08:16→16:17)
[2016-12-06] MEDS: ACETAMINOPHEN/HYDROcodone 325 MG/10 MG TAB PO PRN ×4 (08:17→20:20)
[2016-12-06] MEDS: VANCOMYCIN INJ 1,000 MG in SODIUM CHLOR 0.9% 250 ML INJ 250 ML IV SCH (09:13)
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
[2016-12-06] MEDS: LACTULOSE SYRUP 20 GM/30 ML CUP PO SCH (11:35)
[2016-12-06 12:04] VITALS: BP 137/72; PULSE 66; RESP 18; TEMP 97; O2SAT 97
[2016-12-06 16:20] VITALS: BP 138/75; PULSE 72; RESP 18; TEMP 97.1; O2SAT 98
[2016-12-06] MEDS: MORPHINE SULFATE 4 MG/ML INJ IV PUSH PRN ×2 (17:41→23:00)
[2016-12-06 19:00] VITALS: BP 141/87; PULSE 63; RESP 16; TEMP 97.3; O2SAT 97
[2016-12-06] MEDS: FAMOTIDINE 20 MG TAB PO SCH (20:20)
[2016-12-06] MEDS: MAGNESIUM HYDROXIDE SUSP 30 ML CUP PO SCH (20:21)
[2016-12-06] MEDS ORDERED: SENNOSIDES 8.6 MG TAB PO SCH ×2 (21:00)
[2016-12-06] MEDS ORDERED: BISACODYL EC 5 MG TABEC PO SCH ×2 (21:00)
[2016-12-07] VITALS: BP 130/71; PULSE 71; RESP 16; TEMP 97.5; O2SAT 95
[2016-12-07] MEDS: ACETAMINOPHEN/HYDROcodone 325 MG/10 MG TAB PO PRN ×4 (00:48→15:09)
[2016-12-07] MEDS: ceFAZolin 2 GM PREMIX 50 ML IV SCH ×2 (00:48→07:43)
[2016-12-07] MEDS: LACTULOSE SYRUP 20 GM/30 ML CUP PO SCH (06:55)
--- NOTE | 2016-12-07 07:07 | PD.ORT.PN ---
Subjective Subjective Remarks POD 3 s/p ORIF right acetabulum s/p right foot drop doing well. pain controlled out of bed with walker. states feels comfortable enough to go home Objective Vitals Vital Signs Date Time Temp Pulse Resp B/P Pulse Ox O2 Delivery O2 Flow Rate FiO2 12/07/16 00:00 97.5 71 16 130/71 95 12/06/16 19:00 97.3 63 16 141/87 97 12/06/16 16:20 97.1 72 18 138/75 98 12/06/16 12:04 97.0 66 18 137/72 97 12/06/16 10:48 16 12/06/16 08:00 97.2 67 16 118/65 96 I/O 12/06/16 12/06/16 12/06/16 12/07/16 12/07/16 12/07/16 06:59 14:59 22:59 06:59 14:59 22:59 Intake Total 1480 ml 600 ml 480 ml 480 ml Output Total 360 ml 200 ml Balance 1120 ml 600 ml 280 ml 480 ml Intake Oral 480 ml 600 ml 480 ml 480 ml IV Total 1000 ml Output Urine Total 350 ml 200 ml Drainage Total 10 ml # Voids 2 2 3 # Bowel Movements 0 0 0 0 Result Diagram: 12/05/16 0559 12/04/16 0611 Imaging Last 24 hours Impressions Pelvis X-Ray 12/02/161736 Signed Impressions: Service Date/Time: Friday, December 02, 2016 17:53 - CONCLUSION: 1. Fracture of the right acetabulum with fracture fragments noted. 2. Femoral head is dislocated superiorly. Gordo Khalil MD Maxillofacial CT 12/02/161736 Signed Impressions: Service Date/Time: Friday, December 02, 2016 18:11 - CONCLUSION: 1. Facial soft tissue swelling without acute fracture. 2. Old left nasal fracture. Gordo Khalil MD Head CT 12/02/161736 Signed Impressions: Service Date/Time: Friday, December 02, 2016 18:11 - CONCLUSION: 1. No acute intracranial abnormality. Gordo Khalil MD Chest X-Ray 12/02/161736 Signed Impressions: Service Date/Time: Friday, December 02, 2016 17:55 - CONCLUSION: No acute disease. Gordo Khalil MD Abdomen/Pelvis CT 12/02/16 2537 Signed Impressions: Service Date/Time: Friday, December 02, 2016 18:20 - CONCLUSION: 1. Comminuted displaced fracture of the posterior acetabulum. 2. Dislocation of the femoral head superiorly and posteriorly. 3. No abdominal visceral injury. Gordo Khalil MD Objective Remarks RLE: Dry dressings intact +CKS. decreased sensation distally. +foot drop. Good distal pulses. Is able to move toes . PODUS boot in place LLE: full motion. no pain. nvi BUE: full motion. no pain. nvi Assessment & Plan Assessment and Plan 1) Right Acetabulum fx/dislocation ORIF POD 3 Toe-touch weightbearing with posterior hip precautions Daily dressing changes with Primapore -knee brace at all times 2) Right Foot Drop -monitor. -will require PODUS boot Lovenox Incentive spirometry Case management for discharge planning. home with [facility] today. Follow-up with Dr. Arriaga or PA in 2 weeks Philip Mcclure Dec 07, 2016 07:07
[2016-12-07 07:38] VITALS: BP 123/76; PULSE 60; RESP 16; TEMP 97.6; O2SAT 98
[2016-12-07] MEDS: INDOMETHACIN 75 MG CONTROLLED RELEASE CAP PO SCH (07:43)
[2016-12-07] MEDS: DOCUSATE SODIUM 100 MG CAP PO SCH (07:43)
[2016-12-07] MEDS: GABAPENTIN 400 MG CAP PO SCH ×3 (07:43→15:09)
[2016-12-07] MEDS: ENOXAPARIN SODIUM 30 MG/0.3 ML SYRINGE SQ SCH (11:26)
[2016-12-07 11:29] VITALS: BP 130/75; PULSE 63; RESP 15; TEMP 97.2; O2SAT 99
[2016-12-07 11:34] VITALS: O2SAT 96
[2016-12-07] MEDS ORDERED: NEUR400C PO (11:50)
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
== END 2016-12-07 16:47 | disposition home or self-care (01) | DRG 502 ==
LOC: NEPC 17:23 → NEDA 21:17 → N06A 22:57
PROVIDERS: ADMIT Surgery; ATTEND Surgery
PROC: 0JQJ0ZZ Repair Right Hand Subcutaneous Tissue and Fascia, Open Approach (ICD-10-PCS; 2016-12-02)
PROC: 0JQR0ZZ Repair Left Foot Subcutaneous Tissue and Fascia, Open Approach (ICD-10-PCS; 2016-12-02)
PROC: 0JQQ0ZZ Repair Right Foot Subcutaneous Tissue and Fascia, Open Approach (ICD-10-PCS; 2016-12-04)
PROC: 0QS404Z Reposition Right Acetabulum with Internal Fixation Device, Open Approach (ICD-10-PCS; principal; 2016-12-04 09:12)
DX: S32.491A Other specified fracture of right acetabulum, initial encounter for closed fracture (principal); S91.012A Laceration without foreign body, left ankle, initial encounter; F10.129 Alcohol abuse with intoxication, unspecified; F17.210 Nicotine dependence, cigarettes, uncomplicated; V47.5XXA Car driver injured in collision with fixed or stationary object in traffic accident, initial encounter; Y92.410 Unspecified street and highway as the place of occurrence of the external cause; F12.90 Cannabis use, unspecified, uncomplicated; M21.371 Foot drop, right foot; S61.411A Laceration without foreign body of right hand, initial encounter; Z79.899 Other long term (current) drug therapy; R51 Headache; M54.2 Cervicalgia
CPT/HCPCS: 12001; 27250; 70450; 70486; 71010; 71260; 72125; 72128; 72131; 72170; 73130; 73501; 73503; 73552; 73560; 74177; 76000; 77261; 77290; 77307; 77334; 77336; 77387; 77412; 77431; 80048; 80307; 85025; 85027; 85610; 85730; 86850; 86900; 86901; 86920; 90471; 90714; 93005; 94150; 94640; 94667; 94668; 96361; 96374; 96375; 96376; 99156; 99221; J0131; J0690; J1580; J1650; J2250; J2270; J2405; J3010; J3370; J7030; J7050; J7120; L1830; Q9967

== ENCOUNTER 2016-12-13 14:10 | Emergency (ER) | payer SELFPAY ==
[~2016-12-13] VITALS: Ht 182.9 cm; Wt 100.0 kg
[~2016-12-13 14:10] MED LIST changes: -AMOX500T PO; +COMMODE 3-IN-11 MIS; -DICL50TA3 PO; +DOCU1CAP39 PO; +HYDR-3583 PO; +MAGN400S PO; +NEUR400C PO; +WALKER/ADULT/FO1 MIS; +WHEEMIS3; +XARE10TA PO
[2016-12-13 14:11] VITALS: BP 135/89; PULSE 76; RESP 20; TEMP 97.4; O2SAT 100
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
[2016-12-13 18:34] VITALS: BP_SYST 163; BP_SYST 184; BP_DIAS 105; BP_DIAS 110; PULSE 72; RESP 20; O2SAT 99
[2016-12-13] MEDS ORDERED: SODIUM CHLORIDE 0.9% FLUSH 10 ML FLUSH IVF PRN (19:00)
[2016-12-13] MEDS ORDERED: SODIUM CHLOR 0.9% 1000 ML INJ 1,000 ML IV ONE (19:00)
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
[2016-12-13 20:28] LABS: AUTOMATED NEUTROPHIL # 8.3 TH/MM3 (1.8-7.7); BASOPHIL # 0.1 TH/MM3 (0-0.2); BASOPHIL % 0.9 % (0.0-2.0); EOSINOPHIL # 0.4 TH/MM3 (0-0.4); EOSINOPHIL % 3.7 % (0.0-4.0); HEMATOCRIT 37.4 % (39.0-51.0); LYMPH % 14.6 % (9.0-44.0); LYMPHOCYTE # 1.7 TH/MM3 (1.0-4.8); MEAN CELL VOLUME 91.3 FL (80.0-100.0); MEAN CORPUSCULAR HEMOGLOBIN 30.3 PG (27.0-34.0); MEAN CORPUSCULAR HGB CONC 33.2 % (32.0-36.0); MONO % 7.9 % (0.0-8.0); NEUT % 72.9 % (16.0-70.0); PLATELET COUNT 569 TH/MM3 (150-450); RED BLOOD COUNT 4.09 MIL/MM3 (4.50-5.90); RED CELL DISTRIBUTION WIDTH 13.3 % (11.6-17.2); WHITE BLOOD COUNT 11.5 TH/MM3 (4.0-11.0)
[2016-12-13 20:35] LABS: ANION GAP 9 MEQ/L (5-15); AST (GOT) 44 U/L (15-37); BICARBONATE 24.6 MEQ/L (21.0-32.0); BLOOD UREA NITROGEN 21 MG/DL (7-18); CHLORIDE 101 MEQ/L (98-107); GLOMERULAR FILTRATION RATE 117 ML/MIN (>89); POTASSIUM 4.2 MEQ/L (3.5-5.1); SODIUM (NA) 135 MEQ/L (136-145)
[2016-12-13 20:41] LABS: ALKALINE PHOSPHATASE 99 U/L (45-117); ALT (GPT) 72 U/L (12-78); CREATINE KINASE 164 U/L (39-308); TOTAL BILIRUBIN ADULT 0.5 MG/DL (0.2-1.0)
[2016-12-13 20:46] LABS: HEMO FLAGS AUTO DIFF
[2016-12-13 20:52] LABS: APTT (PATIENT) 22.3 SEC (24.3-30.1); INTERNATIONAL NORMALIZED RATIO 0.9 RATIO; PROTHROMBIN TIME - PATIENT 10.2 SEC (9.8-11.6)
[2016-12-13 20:53] LABS: CKMB 0.6 NG/ML (0.5-3.6)
[2016-12-13] MEDS ORDERED: IOHEXOL 350 MG/ML 10 ML VIAL (for RAD DIAG) IV ONE (20:59)
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
[2016-12-13] MEDS ORDERED: PERC5TAB12 PO (21:36)
[2016-12-13] MEDS ORDERED: RIVAROXABAN 20 MG TAB PO ONE (21:45)
[2016-12-13 22:06] LABS: BANDS 2 % (0-6); BASOPHILS 1 % (0-2); EOSINOPHILS 3 % (0-4); MYELOCYTES 1 % (0-0); NEUTROPHIL # MANUAL DIFF 8.2 TH/MM3 (1.8-7.7); POLYS (SEG NEUTROPHILS) 68 % (16-70); TOXIC GRANULATION 2+ (NORMAL); WBC DIFF SAMPLE 100
[2016-12-13 22:07] LABS: PLATELET ESTIMATE SMEAR HIGH (NORMAL); PLATELET MORPHOLOGY NORMAL (NORMAL); SCAN/DIFF FINAL DIFF MANUAL
[2016-12-13 22:16] VITALS: BP 130/78
--- NOTE | 2016-12-14 11:05 | EKG ---
Date Performed: 12/13/2016 Time Performed: 18:32:35 PTAGE: 41 years EKG: Sinus rhythm NORMAL ECG Since PREVIOUS TRACING , no significant change noted PREVIOUS TRACING 12/02/2016 17.46.39 DOCTOR: Sivakumar Stein Interpretating Date/Time 12/14/2016 11:04:45
== END 2016-12-13 22:00 | disposition home or self-care (01) ==
LOC: NEPD 14:10
DX: R07.81 Pleurodynia (principal); G89.18 Other acute postprocedural pain; R25.2 Cramp and spasm; R06.02 Shortness of breath; R05 Cough; Z72.0 Tobacco use; Z79.899 Other long term (current) drug therapy
CPT/HCPCS: 71275; 80053; 82550; 82552; 84484; 85007; 85027; 85610; 85730; 93005; 93971; 96361; 96374; 99285; J7030; Q9967

== ENCOUNTER 2017-04-27 12:19 | Inpatient (IN) | payer SELFPAY ==
[~2017-04-27] VITALS: Ht 182.9 cm; Wt 100.0 kg
[~2017-04-27 12:19] MED LIST changes: -HYDR-3583 PO; +PERC5TAB12 PO
[2017-04-27 12:22] VITALS: BP 154/98; PULSE 90; RESP 14; TEMP 97.6; O2SAT 96
[2017-04-27] MEDS ORDERED: MORPHINE SULFATE 4 MG/ML INJ IV PUSH ONE (13:15)
[2017-04-27] MEDS ORDERED: SODIUM CHLOR 0.9% 1000 ML INJ 1,000 ML IV ONE ×3 (13:15→16:45)
[2017-04-27] MEDS ORDERED: ONDANSETRON HCL 4 MG/2 ML VIAL IV PUSH ONE (13:15)
[2017-04-27] MEDS ORDERED: AMPICILLIN-SULBACTAM INJ 3 GM in SODIUM CHLORIDE 0.9% INJ 100 ML IV ONE (13:15)
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
[2017-04-27 14:11] LABS: AUTOMATED NEUTROPHIL # 12.5 TH/MM3 (1.8-7.7); BASOPHIL % 0.3 % (0.0-2.0); EOSINOPHIL # 0.1 TH/MM3 (0-0.4); EOSINOPHIL % 0.7 % (0.0-4.0); HEMATOCRIT 48.3 % (39.0-51.0); HEMO FLAGS DIFF FINAL; LYMPH % 13.2 % (9.0-44.0); MEAN CORPUSCULAR HEMOGLOBIN 29.8 PG (27.0-34.0); MEAN CORPUSCULAR HGB CONC 34.2 % (32.0-36.0); MONO % 5.4 % (0.0-8.0); NEUT % 80.4 % (16.0-70.0); PLATELET COUNT 287 TH/MM3 (150-450); RED BLOOD COUNT 5.55 MIL/MM3 (4.50-5.90); RED CELL DISTRIBUTION WIDTH 14.7 % (11.6-17.2); WHITE BLOOD COUNT 15.5 TH/MM3 (4.0-11.0)
[2017-04-27 14:28] LABS: ALT (GPT) 181 U/L (12-78); ANION GAP 6 MEQ/L (5-15); AST (GOT) 69 U/L (15-37); BICARBONATE 27.6 MEQ/L (21.0-32.0); BLOOD UREA NITROGEN 9 MG/DL (7-18); CHLORIDE 108 MEQ/L (98-107); GLOMERULAR FILTRATION RATE 100 ML/MIN (>89); POTASSIUM 4.2 MEQ/L (3.5-5.1); SODIUM (NA) 142 MEQ/L (136-145)
[2017-04-27 14:31] LABS: ALKALINE PHOSPHATASE 137 U/L (45-117); TOTAL BILIRUBIN ADULT 0.4 MG/DL (0.2-1.0)
[2017-04-27 14:59] VITALS: BP 153/96; PULSE 75
[2017-04-27] MEDS ORDERED: IOHEXOL 350 MG/ML 10 ML VIAL (for RAD DIAG) IVCONTRAST ONE (15:50)
--- NOTE | 2017-04-27 16:28 | RADRPT ---
EXAM DATE/TIME: 04/27/2017 15:43 [facility] COMPARISON: No previous studies available for comparison. INDICATIONS : Left sided facial swelling. IV CONTRAST: 76 cc Omnipaque 350 (iohexol) IV RADIATION DOSE: 36.57 CTDIvol (mGy) MEDICAL HISTORY : None SURGICAL HISTORY : Appendectomy. ENCOUNTER: Initial ACUITY: 1 day PAIN SCALE: 7/10 LOCATION: Left face TECHNIQUE: Volumetric scanning of the facial bones was performed. Using automated exposure control and adjustme nt of the mA and/or kV according to patient size, radiation dose was kept as low as reasonably achiev able to obtain optimal diagnostic quality images. DICOM format image data is available electronicall y for review and comparison. FINDINGS: ORBITS: The orbital and infraorbital osseous structures are intact. The retroconal structures have a normal configuration. No radiopaque foreign bodies are seen. NASAL BONE: The nasal bone and maxillary spine are intact ZYGOMATIC ARCHES: Symmetric without evidence of fracture. SINUSES: There is near-complete opacification of the right maxillary sinus with involvement of the right ostio meatal unit. Small mucous retention cyst in the left maxillary sinus. NASAL CAVITY: The nasal septum is intact and midline. The lacrimal ducts are intact. SOFT TISSUES: Diffuse soft tissue edema involving the lower jaw with low density collection surrounding the body of the right mandible. There are also lucencies extending through the anterior right body of the mandib le corresponding to the right second molar. There is an impacted wisdom tooth on the right. There is a prominent probable subcutaneous level I node measuring 1.5 x 1.3 cm. No definite focal drainable fl uid collections are noted. INTRACRANIAL: No intracranial air seen. CRIBIFORM PLATE: Grossly intact. CONCLUSION: 1. Diffuse cellulitis involving the lower jaw soft tissues with a focal 1.5 x 1.3 cm sub-cutaneous ma ss likely reflecting an enlarged level I node. 2. Low density collection surrounding the body of the right mandible with lucencies extending through the anterior right body of the mandible corresponding to right second molar consistent with an odont ogenic infectious process. 3. Right maxillary sinus mucosal disease with involvement of the ostiomeatal unit. Minimal left maxil alejandro sinus mucosal disease. Thee Nelson MD on April 27, 2017 at 16:11 Board Certified Radiologist. This report was verified electronically.
[2017-04-27 16:33] VITALS: BP 156/85
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
[2017-04-27] MEDS ORDERED: ACETAMINOPHEN/HYDROcodone 325 MG/5 MG TAB PO PRN (18:45)
[2017-04-27] MEDS ORDERED: ACETAMINOPHEN/HYDROcodone 325 MG/7.5 MG TAB PO PRN (18:45)
[2017-04-27] MEDS ORDERED: SODIUM CHLORIDE 0.9% FLUSH 10 ML FLUSH IV FLUSH PRN (18:45)
[2017-04-27] MEDS ORDERED: ACETAMINOPHEN 500 MG CPLT PO PRN (18:45)
[2017-04-27] MEDS ORDERED: NALOXONE HCL 0.4 MG/ML AMP IV PUSH PRN (19:00)
[2017-04-27] MEDS ORDERED: MORPHINE SULFATE 4 MG/ML INJ IV PUSH PRN (19:00)
[2017-04-27 20:00] VITALS: BP 139/86; PULSE 92; RESP 21; TEMP 99.4; O2SAT 93
[2017-04-27] MEDS: AMPICILLIN-SULBACTAM INJ 3 GM in SODIUM CHLORIDE 0.9% INJ 100 ML IV SCH (20:02)
[2017-04-27] MEDS: SODIUM CHLORIDE 0.9% FLUSH 10 ML FLUSH IV FLUSH SCH (20:02)
[2017-04-27] MEDS: MORPHINE SULFATE 4 MG/ML INJ IV PUSH PRN ×2 (20:03→23:25)
[2017-04-27] MEDS: SODIUM CHLOR 0.9% 1000 ML INJ 1,000 ML IV SCH (20:03)
--- NOTE | 2017-04-27 20:23 | RADRPT ---
EXAM DATE/TIME: 04/27/2017 19:37 [facility] COMPARISON: No previous studies available for comparison. INDICATIONS : Cough. MEDICAL HISTORY : Hypertension. SURGICAL HISTORY : None. ENCOUNTER: Initial ACUITY: 4 - 6 days PAIN SCORE: 0/10 LOCATION: Bilateral chest FINDINGS: A single view of the chest demonstrates the lungs to be symmetrically aerated without evidence of mas s, infiltrate or effusion. The cardiomediastinal contours are unremarkable. Osseous structures are intact. CONCLUSION: No acute disease. Cedrick Grant MD on April 27, 2017 at 20:20 Board Certified Radiologist. This report was verified electronically.
[2017-04-27 22:56] LABS: ALCOHOL LESS THAN 3 MG/DL (0-5)
[2017-04-27 22:57] LABS: CREATINE KINASE 271 U/L (39-308)
[2017-04-27] MEDS: HEPARIN SODIUM - SQ 10,000 UNITS/ML VIAL SQ SCH (23:24)
[2017-04-28] VITALS: BP 145/86; PULSE 82; RESP 21; TEMP 98.1; O2SAT 94
[2017-04-28] MEDS: AMPICILLIN-SULBACTAM INJ 3 GM in SODIUM CHLORIDE 0.9% INJ 100 ML IV SCH ×4 (02:47→19:43)
[2017-04-28] MEDS: SODIUM CHLOR 0.9% 1000 ML INJ 1,000 ML IV SCH ×4 (02:48→19:42)
[2017-04-28] MEDS: MORPHINE SULFATE 4 MG/ML INJ IV PUSH PRN ×6 (02:48→18:39)
[2017-04-28 03:53] LABS: BICARBONATE 29.6 MEQ/L (21.0-32.0); POTASSIUM 3.8 MEQ/L (3.5-5.1)
[2017-04-28 03:55] LABS: BASOPHIL # 0.1 TH/MM3 (0-0.2); BASOPHIL % 0.7 % (0.0-2.0); EOSINOPHIL # 0.1 TH/MM3 (0-0.4); EOSINOPHIL % 0.7 % (0.0-4.0); HEMATOCRIT 41.4 % (39.0-51.0); HEMO FLAGS DIFF FINAL; LYMPH % 15.8 % (9.0-44.0); LYMPHOCYTE # 2.1 TH/MM3 (1.0-4.8); MEAN CELL VOLUME 87.2 FL (80.0-100.0); MEAN CORPUSCULAR HEMOGLOBIN 29.5 PG (27.0-34.0); MEAN CORPUSCULAR HGB CONC 33.9 % (32.0-36.0); MONO % 7.3 % (0.0-8.0); NEUT % 75.5 % (16.0-70.0); PLATELET COUNT 227 TH/MM3 (150-450); RED BLOOD COUNT 4.75 MIL/MM3 (4.50-5.90); RED CELL DISTRIBUTION WIDTH 14.2 % (11.6-17.2); WHITE BLOOD COUNT 13.3 TH/MM3 (4.0-11.0)
[2017-04-28 03:57] LABS: CREATINE KINASE 273 U/L (39-308)
[2017-04-28] MEDS: HEPARIN SODIUM - SQ 10,000 UNITS/ML VIAL SQ SCH ×3 (05:56→19:43)
[2017-04-28 08:00] VITALS: BP 151/101; PULSE 76; RESP 20; TEMP 97.7; O2SAT 97
[2017-04-28] MEDS: KETOROLAC TROMETHAMINE 30 MG/ML (IVP) VIAL IVP PRN ×2 (08:10→22:37)
[2017-04-28] MEDS: SODIUM CHLORIDE 0.9% FLUSH 10 ML FLUSH IV FLUSH SCH ×2 (08:10→19:42)
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
--- NOTE | 2017-04-28 10:30 | EKG ---
Date Performed: 04/28/2017 Time Performed: 07:36:13 PTAGE: 41 years EKG: SINUS BRADYCARDIA BORDERLINE ECG PREVIOUS TRACING : 12/13/2016 18.32 No significant change from previous tracing noted. DOCTOR: Eugene Hidalgo Interpretating Date/Time 04/28/2017 10:28:30
--- NOTE | 2017-04-28 10:40 | EKG ---
Date Performed: 04/28/2017 Time Performed: 01:32:06 PTAGE: 41 years EKG: Sinus rhythm . Normal ECG NO PREVIOUS TRACING DOCTOR: Eugene Hidalgo Interpretating Date/Time 04/28/2017 10:39:40
[2017-04-28 12:00] VITALS: BP 140/87; PULSE 66; RESP 20; TEMP 98.2; O2SAT 94
[2017-04-28] MEDS ORDERED: ACETAMINOPHEN/HYDROcodone 325 MG/5 MG TAB PO PRN (13:45)
[2017-04-28 16:00] VITALS: BP 133/90; PULSE 60; RESP 19; TEMP 97.8; O2SAT 94
[2017-04-28 17:21] LABS: CREATINE KINASE 337 U/L (39-308)
[2017-04-28 17:32] LABS: CKMB 0.9 NG/ML (0.5-3.6)
[2017-04-28] MEDS: ACETAMINOPHEN/HYDROcodone 325 MG/7.5 MG TAB PO PRN (19:44)
[2017-04-28 21:54] VITALS: BP 138/89; PULSE 66; RESP 18; TEMP 98; O2SAT 95
[2017-04-29] VITALS: BP 147/89; PULSE 54; RESP 16; TEMP 98.2; O2SAT 97
[2017-04-29] MEDS: ACETAMINOPHEN/HYDROcodone 325 MG/7.5 MG TAB PO PRN ×4 (00:51→13:06)
[2017-04-29] MEDS: AMPICILLIN-SULBACTAM INJ 3 GM in SODIUM CHLORIDE 0.9% INJ 100 ML IV SCH ×2 (03:34→09:01)
[2017-04-29] MEDS: SODIUM CHLOR 0.9% 1000 ML INJ 1,000 ML IV SCH ×2 (04:56→13:07)
[2017-04-29] MEDS: HEPARIN SODIUM - SQ 10,000 UNITS/ML VIAL SQ SCH ×2 (04:57→13:09)
[2017-04-29 07:02] LABS: AUTOMATED NEUTROPHIL # 4.7 TH/MM3 (1.8-7.7); BASOPHIL # 0.2 TH/MM3 (0-0.2); BASOPHIL % 2.8 % (0.0-2.0); EOSINOPHIL # 0.2 TH/MM3 (0-0.4); EOSINOPHIL % 3.1 % (0.0-4.0); HEMATOCRIT 37.9 % (39.0-51.0); HEMO FLAGS DIFF FINAL; LYMPHOCYTE # 1.5 TH/MM3 (1.0-4.8); MEAN CELL VOLUME 87.2 FL (80.0-100.0); MEAN CORPUSCULAR HEMOGLOBIN 30.2 PG (27.0-34.0); MEAN CORPUSCULAR HGB CONC 34.6 % (32.0-36.0); MONO % 9.7 % (0.0-8.0); NEUT % 64.4 % (16.0-70.0); PLATELET COUNT 183 TH/MM3 (150-450); RED BLOOD COUNT 4.34 MIL/MM3 (4.50-5.90); RED CELL DISTRIBUTION WIDTH 14.2 % (11.6-17.2); WHITE BLOOD COUNT 7.3 TH/MM3 (4.0-11.0)
[2017-04-29 07:14] LABS: ALKALINE PHOSPHATASE 105 U/L (45-117); ALT (GPT) 100 U/L (12-78); ANION GAP 7 MEQ/L (5-15); AST (GOT) 40 U/L (15-37); BLOOD UREA NITROGEN 9 MG/DL (7-18); CHLORIDE 104 MEQ/L (98-107); GLOMERULAR FILTRATION RATE 141 ML/MIN (>89); POTASSIUM 3.6 MEQ/L (3.5-5.1); SODIUM (NA) 138 MEQ/L (136-145); TOTAL BILIRUBIN ADULT 0.9 MG/DL (0.2-1.0)
[2017-04-29 08:00] VITALS: BP 133/90; PULSE 59; RESP 16; TEMP 96.6; O2SAT 93
[2017-04-29] MEDS: SODIUM CHLORIDE 0.9% FLUSH 10 ML FLUSH IV FLUSH SCH (09:00)
[2017-04-29] MEDS ORDERED: MORPHINE SULFATE 2 MG/ML INJ IV PUSH PRN (10:00)
[2017-04-29] MEDS: KETOROLAC TROMETHAMINE 30 MG/ML (IVP) VIAL IVP PRN ×2 (10:40→17:08)
[2017-04-29 12:00] VITALS: BP 142/94; PULSE 57; RESP 16; TEMP 97.5; O2SAT 93
[2017-04-29 14:06] VITALS: RESP 16
[2017-04-29] MEDS ORDERED: HYDR-3516 PO (14:55)
[2017-04-29] MEDS ORDERED: AMOX875T2 PO (14:55)
[2017-04-29] MEDS ORDERED: AMOXICILLIN/CLAVULANATE K 875 MG TAB PO ONE (15:00)
--- NOTE | 2017-04-29 15:02 | HHI.DCPOC ---
Discharge Care Plan Diagnosis: (1) Cellulitis of jawline (2) Dental caries (3) Dentalgia Goals to Promote Your Health * To prevent worsening of your condition and complications * To maintain your health at the optimal level Directions to Meet Your Goals Seek dental care as soon as possible Take your medications as prescribed Follow your dietary instruction Follow activity as directed Keep your appointments as scheduled Take your immunizations and boosters as scheduled If your symptoms worsen call your PCP, if no PCP go to Urgent Care Center or Emergency Room Smoking is Dangerous to Your Health. Avoid second hand smoke Call the 24-hour hour crisis hotline for domestic abuse at Hermes Jones MD Apr 29, 2017 3:02 pm
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
== END 2017-04-29 19:30 | disposition home or self-care (01) | DRG 603 ==
LOC: NEPD 12:19 → NEDA 16:59 → N07B 19:37
PROVIDERS: ADMIT Family Medicine; ATTEND Family Medicine
DX: L03.211 Cellulitis of face (principal); E87.2 Acidosis; I10 Essential (primary) hypertension; J02.9 Acute pharyngitis, unspecified; K02.9 Dental caries, unspecified; R07.9 Chest pain, unspecified; R74.0 Nonspecific elevation of levels of transaminase and lactic acid dehydrogenase [LDH]; R59.0 Localized enlarged lymph nodes; K04.7 Periapical abscess without sinus; R00.1 Bradycardia, unspecified; F17.210 Nicotine dependence, cigarettes, uncomplicated; Z79.01 Long term (current) use of anticoagulants
CPT/HCPCS: 70487; 71010; 80048; 80053; 80307; 82550; 82552; 83605; 84484; 85025; 87040; 93005; 96365; 96375; J0295; J1644; J1885; J2270; J2405; J7030; Q9967

== ENCOUNTER 2017-06-29 18:30 | Emergency (ER) | payer SELFPAY ==
[~2017-06-29] VITALS: Ht 182.9 cm; Wt 100.0 kg
[~2017-06-29 18:30] MED LIST changes: +AMOX875T2 PO; +HYDR-3516 PO; -PERC5TAB12 PO
[2017-06-29 18:31] VITALS: BP 173/99; PULSE 97; RESP 16; TEMP 98; O2SAT 98
[2017-06-29] MEDS ORDERED: KETOROLAC TROMETHAMINE 30 MG/ML (IVP) VIAL IV PUSH ONE (19:00)
[2017-06-29] MEDS ORDERED: CLINDAMYCIN 600 MG/NS PREMIX 50 ML IV ONE (19:00)
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
[2017-06-29 19:28] LABS: BASOPHIL % 0.6 % (0.0-2.0); EOSINOPHIL # 0.2 TH/MM3 (0-0.4); EOSINOPHIL % 2.2 % (0.0-4.0); HEMOGLOBIN 15.6 GM/DL (13.0-17.0); LYMPH % 12.1 % (9.0-44.0); MEAN CELL VOLUME 88.1 FL (80.0-100.0); MEAN PLATELET VOLUME 8.3 FL (7.0-11.0); MONO % 9.9 % (0.0-8.0); MONOCYTE # 0.8 TH/MM3 (0-0.9); NEUT % 75.2 % (16.0-70.0); PLATELET COUNT 181 TH/MM3 (150-450); RED BLOOD COUNT 4.88 MIL/MM3 (4.50-5.90); RED CELL DISTRIBUTION WIDTH 13.7 % (11.6-17.2)
[2017-06-29 19:33] LABS: MEAN CORPUSCULAR HGB CONC 36.3 % (32.0-36.0)
[2017-06-29 19:45] LABS: BICARBONATE 27.9 MEQ/L (21.0-32.0); CALCIUM 8.9 MG/DL (8.5-10.1); CREATININE 0.8 MG/DL (0.60-1.30); MAGNESIUM 2.1 MG/DL (1.5-2.5)
--- NOTE | 2017-06-29 19:53 | PD ---
Physical Exam Date Seen by Provider: Jun 29, 2017 Narrative This patient presents with a one-day history of swelling of the right jaw. He is also complaining with some cold sores on his right lower lip. Data Data Last Documented VS Vital Signs Date Time Temp Pulse Resp B/P (MAP) Pulse Ox O2 Delivery O2 Flow Rate FiO2 06/29/17 18:31 98.0 97 16 173/99 (123) 98 Orders Orders Complete Blood Count With Diff (06/29/17 19:00) Basic Metabolic Panel (Bmp) (06/29/17 19:00) Magnesium (Mg) (06/29/17 19:00) Iv Access Insert/Monitor (06/29/17 19:00) Clindamycin 600 Mg/Ns Premix (Cleocin 60 (06/29/17 19:00) Ketorolac Inj (Toradol Inj) (06/29/17 19:00) Labs Laboratory Tests Test 06/29/17 19:16 White Blood Count 8.0 TH/MM3 Red Blood Count 4.88 MIL/MM3 Hemoglobin 15.6 GM/DL Hematocrit 43.0 % Mean Corpuscular Volume 88.1 FL Mean Corpuscular Hemoglobin 32.0 PG Mean Corpuscular Hemoglobin Concent 36.3 % Red Cell Distribution Width 13.7 % Platelet Count 181 TH/MM3 Mean Platelet Volume 8.3 FL Neutrophils (%) (Auto) 75.2 % Lymphocytes (%) (Auto) 12.1 % Monocytes (%) (Auto) 9.9 % Eosinophils (%) (Auto) 2.2 % Basophils (%) (Auto) 0.6 % Neutrophils # (Auto) 6.0 TH/MM3 Lymphocytes # (Auto) 1.0 TH/MM3 Monocytes # (Auto) 0.8 TH/MM3 Eosinophils # (Auto) 0.2 TH/MM3 Basophils # (Auto) 0.0 TH/MM3 CBC Comment AUTO DIFF Blood Urea Nitrogen 12 MG/DL Creatinine 0.80 MG/DL Random Glucose 95 MG/DL Calcium Level 8.9 MG/DL Magnesium Level 2.1 MG/DL Sodium Level 139 MEQ/L Potassium Level 3.8 MEQ/L Chloride Level 105 MEQ/L Carbon Dioxide Level 27.9 MEQ/L Anion Gap 6 MEQ/L Estimat Glomerular Filtration Rate 107 ML/MIN MDM Supervised Visit with LUIS: Yes Narrative Course I, Dr. Sargent, have reviewed the advance practice practitioner's documentation and am in agreement, met with the patient face to face, made the diagnosis, and the medical decision making was done by me. *My assessment and Findings: Vital Signs Date Time Temp Pulse Resp B/P (MAP) Pulse Ox O2 Delivery O2 Flow Rate FiO2 06/29/17 18:31 98.0 97 16 173/99 (123) 98 He has some swelling of the right jaw. He has a cluster of vesicular lesions on the right lower lip See Kalen Lozada note for lab and radiology results, final diagnosis and disposition Scripts No Active Prescriptions or Reported Meds Latoya Sargent MD Jun 29, 2017 19:53
[2017-06-29] MEDS ORDERED: HYDR-3516 PO (19:54)
[2017-06-29] MEDS ORDERED: MAGICADU2 SWISH-SWAL (19:54)
[2017-06-29] MEDS ORDERED: ACYC200C66 PO (19:54)
[2017-06-29] MEDS ORDERED: CLIN150C14 PO (19:54)
[2017-06-29 19:58] LABS: TOXIC GRANULATION 1+ (NORMAL); TOXIC VACUOLATION PRESENT (NONE SEEN)
== END 2017-06-29 20:12 | disposition home or self-care (01) ==
LOC: NEPE 18:30
DX: K08.89 Other specified disorders of teeth and supporting structures (principal); B00.1 Herpesviral vesicular dermatitis; K02.9 Dental caries, unspecified; F17.200 Nicotine dependence, unspecified, uncomplicated; Z79.899 Other long term (current) drug therapy
CPT/HCPCS: 80048; 83735; 85025; 96374; 96375; 99284; J1885

== ENCOUNTER 2017-09-14 02:30 | Emergency (ER) | payer SELFPAY ==
[~2017-09-14] VITALS: Ht 182.9 cm; Wt 100.0 kg
[~2017-09-14 02:30] MED LIST changes: +ACYC200C66 PO; -AMOX875T2 PO; +CLIN150C14 PO; -COMMODE 3-IN-11 MIS; -DOCU1CAP39 PO; +MAGICADU2 SWISH-SWAL; -MAGN400S PO; -NEUR400C PO; -WALKER/ADULT/FO1 MIS; -WHEEMIS3; -XARE10TA PO
[2017-09-14 02:43] VITALS: BP 141/94; PULSE 63; RESP 20; TEMP 97.9; O2SAT 98
[2017-09-14] MEDS ORDERED: CLINDAMYCIN 150 MG CAP PO ONE (03:00)
[2017-09-14] MEDS ORDERED: IBUPROFEN 800 MG TAB PO ONE (03:00)
[2017-09-14] MEDS ORDERED: CHLO.12%30 SWISH-SPIT (03:10)
[2017-09-14] MEDS ORDERED: IBUP1TAB7 PO (03:10)
[2017-09-14] MEDS ORDERED: CLIN150C14 PO (03:10)
--- NOTE | 2017-09-14 03:10 | PD ---
HPI Chief Complaint: Oral / Dental Pain or Problem Time Seen by Provider: 02:50 Travel History International Travel<30 days: No Contact w/Intl Traveler<30days: No Traveled to known affect area: No History of Present Illness HPI Patient is a 41-year-old male presenting to the emergency department for evaluation of 2 days of right lower dental pain. Patient states the pain is chronic in nature, he has had a dental abscess in the area twice before. He states he presented at this time because he started to have some swelling. He denies any fever, chills, nausea, vomiting, headache, shortness of breath. Symptom onset is gradual, symptoms are moderate in nature. He states his pain is a 6 out of 10 and states is throbbing. No alleviating factors. PFSH Past Medical History Cancer: No Cardiovascular Problems: Yes Musculoskeletal: Yes Immunizations Current: Yes Tetanus Vaccination: < 5 Years Influenza Vaccination: No Past Surgical History Appendectomy: Yes Joint Replacement: Yes (RIGHT HIP) Neurologic Surgery: Yes (FX NECK and skull) Other Surgery: Yes Social History Alcohol Use: Yes (OCC) Tobacco Use: Yes (1ppd) Substance Use: No Allergies-Medications (Allergen,Severity, Reaction): Coded Allergies: No Known Allergies (Unverified Allergy, Unknown, 09/14/17) Reported Meds & Prescriptions Reported Meds & Active Scripts Active No Active Prescriptions or Reported Medications Review of Systems Except as stated in HPI: all other systems reviewed are Neg HENT: Positive: Dental Difficulties Physical Exam Narrative GENERAL: Well-developed, well-nourished, well-kept male. Presenting in no acute distress. SKIN: Warm and dry. Mild edema to right lower jaw, no erythema or fluctuance noted. MOUTH: Mucous membranes moist, no lesions, tongue and gums appear normal. Right lower first molar with significant dental caries. HEAD: Normocephalic. EYES: No scleral icterus. No injection or drainage. NECK: Supple, trachea midline. No JVD or lymphadenopathy. CARDIOVASCULAR: Regular rate and rhythm without murmurs, gallops, or rubs. RESPIRATORY: Breath sounds equal bilaterally. No accessory muscle use. GASTROINTESTINAL: Abdomen soft, non-tender, nondistended. MUSCULOSKELETAL: No cyanosis, or edema. BACK: Nontender without obvious deformity. No CVA tenderness. Data Data Last Documented VS Vital Signs Date Time Temp Pulse Resp B/P (MAP) Pulse Ox O2 Delivery O2 Flow Rate FiO2 09/14/17 02:43 97.9 63 20 141/94 (110) 98 Orders Orders Clindamycin (Cleocin) (09/14/17 03:00) Ibuprofen (Motrin) (09/14/17 03:00) [facility] Medical Decision Making Medical Screen Exam Complete: Yes Emergency Medical Condition: Yes Medical Record Reviewed: Yes Interpretation(s) Vital Signs Date Time Temp Pulse Resp B/P (MAP) Pulse Ox O2 Delivery O2 Flow Rate FiO2 09/14/17 02:43 97.9 63 20 141/94 (110) 98 Differential Diagnosis Abscess versus dental caries versus dentalgia versus other Narrative Course Patient is a 41-year-old male presenting with dental pain and swelling. His vital signs are stable. He is afebrile. Patient will be given dose of clindamycin now as well as ibuprofen. Patient has had issues with the same presenting complaint for the last 6 months, he was strongly encouraged to follow -up with a dentist. At this point there is no fluctuance noted, I&D would not be indicated. Patient was advised to be reevaluated if symptoms did not improve with the next 48 hours or if they started to worsen despite being on antibiotic therapy. Patient verbalized understanding of these instructions. Patient stable for discharge. Diagnosis Primary Impression: Dental caries Additional Impressions: Dentalgia Jaw swelling Referrals: Dentist 3 days Patient Instructions: Dental Abscess (ED), Dental Caries (DC), General Instructions Additional Instructions: You need to follow-up with a dentist Complete full course of antibiotics as prescribed Return to emergency department if there is no improvement in her symptoms or if symptoms begin to worsen despite antibiotic therapy in the next 24-48 hours Apply warm compress to affected area Med/Other Pt SpecificInfo: Prescription(s) given Scripts Ibuprofen (Ibuprofen) 800 Mg Tab 800 MG PO Q6HR Y for PAIN, #40 TAB 0 Refills Prov: Aileen Epperson 09/14/17 Chlorhexidine Gluconate (Mouth) Liq (Chlorhexidine Gluconate (Mouth) Liq) 0.12% Soln 15 ML SWISH-SPIT BID, #473 ML 0 Refills Prov: Aileen Epperson 09/14/17 Clindamycin (Clindamycin) 150 Mg Cap 450 MG PO Q6H for Infection for 7 Days, #84 CAP 0 Refills Prov: Aileen Epperson 09/14/17 Disposition: 01 DISCHARGE HOME Condition: Stable Aileen Epperson September 14, 2017 03:10
== END 2017-09-14 03:23 | disposition home or self-care (01) ==
LOC: NEPD 02:30
DX: K02.9 Dental caries, unspecified (principal); R22.0 Localized swelling, mass and lump, head; F17.200 Nicotine dependence, unspecified, uncomplicated
CPT/HCPCS: 99283